=== PATIENT | male | born 1990 | race Caucasian/White ===

== ENCOUNTER 2017-03-10 21:23 | Emergency (ER) | payer SELFPAY ==
[~2017-03-10] VITALS: Ht 165.1 cm; Wt 81.6 kg
[2017-03-10 21:36] VITALS: BP 121/74
--- NOTE | 2017-03-10 23:00 | NUR ---
PATIENT LEFT WITHOUT BEING SEEN BY DR. YA. NO FURTHER CARE PROVIDED FOR PATIENT.
== END 2017-03-10 23:00 | disposition left against medical advice (07) ==
LOC: MED 21:23
DX: M25.512 Pain in left shoulder (principal); Z53.21 Procedure and treatment not carried out due to patient leaving prior to being seen by health care provider